=== PATIENT | male | born 1965 | race Caucasian/White ===

== ENCOUNTER 2025-02-16 17:11 | Emergency (ER) | payer OTHER, SELFPAY ==
[2025-02-16 17:20] VITALS: BP 137/83; PULSE 80; TEMP 36.7; O2SAT 93; BMI 40.7
[2025-02-16 18:41] LABS: Hematocrit 32.8 % (42.0-54.0); Hemoglobin 10.2 g/dL (14.0-18.0); Immature Granulocytes Abs Auto 0.04 10^3/uL (0.00-0.03); Immature Granulocytes Pct Auto 0.4 % (0.0-0.5); Lymphocytes Absolute Auto 1.4 10^3/uL (1.2-3.8); Mean Corpuscular HGB Conc 31.1 g/dL (29.9-35.2); Mean Corpuscular Hemoglobin 27.5 pg (25.9-34.0); Mean Corpuscular Volume 88.4 fL (80.0-94.0); Platelet Count 261 10^3/uL (150-450); Red Blood Count 3.71 10^6/uL (4.70-6.10); White Blood Count 10.1 10^3/uL (4.0-11.0)
[2025-02-16 18:57] LABS: Alanine Aminotransferase 16 U/L (16-63); Albumin Globulin Ratio 0.7; Albumin Level 2.8 g/dL (3.4-5.0); Alkaline Phosphatase 96 U/L (46-116); Anion Gap 10.4; Aspartate Amino Transferase 16 U/L (15-37); Blood Urea Nitrogen 14.0 mg/dL (7.0-18.0); Calcium 8.6 mg/dL (8.5-10.1); Carbon Dioxide 29.9 mmol/L (21.0-32.0); Chloride 104 mmol/L (98-107); Estimated GFR (African America >60 (>=60 mL/min/1.73m^2); Estimated GFR (Non-African Ame >60 (>=60 mL/min/1.73m^2); Globulin 3.8 g/dL; Glucose 84 mg/dL (74-106); Potassium 4.3 mmol/L (3.5-5.1); Sodium 140 mmol/L (136-145); Total Protein 6.6 g/dL (6.4-8.2)
--- NOTE | 2025-02-16 18:57 | CT_ITS ---
The [address] [address] Patient Name: CHINEDU HARLEY MRN: [id number] date: 1965 Sex: M Assigned Patient Location: ER Current Patient Location: ER Accession/Order Number: [id number] Exam Date: 02/16/2025 19:30 Report Date: 02/16/2025 20:32 At the request of: JOANNA MCCORMICK MD Procedure: CT hip RT w con CT right hip with contrast TECHNIQUE: The CT exam was performed using one or more the following dose reduction techniques: Automated exposure control, adjustment of the MA and/or Kv according to patient size, or use of the iterative reconstruction technique. COMPARISON: None HISTORY: Right hip replacement one month ago. Bilateral leg swelling one week ago. Right hip pain. Right hip arthroplasty. No hardware complication. Adequate alignment. No acute bony destruction. No acute displaced fracture. Lateral subcutaneous stranding. Likely postsurgical. No large hematoma. Small inguinal lymph nodes. CT/CT hip RT w con IMPRESSION: Uncomplicated right hip arthroplasty. Impression dictated by: Jordan Gomez M.D. 02/16/2025 8:32 PM Dictation Location: [facility] Electronically authenticated by: [id number] Y Date: 02/16/2025 20:32
--- NOTE | 2025-02-16 18:57 | ED.EXTPRO1 ---
HPI - Extremity Problem General Chief complaint: Extremity Problem, Nontraumatic Stated complaint: LOWER PAIN Time Seen by Provider: 02/16/25 18:04 Source: patient Mode of arrival: walk-in History of Present Illness HPI Narrative: The patient is coming to [facility] from [facility] after he was admitted there for detox from opiates presented to us for evaluation of his right hip area the patient developed swelling, the patient already have a history of chronic wound s/p surgery of hip replacement 2 months ago Related Data Home Medications ?Medication ?Instructions ?Recorded ?Confirmed aspirin 81 mg tablet,delayed 81 mg PO QAM 02/16/25 02/16/25 release baclofen 10 mg tablet 20 mg PO Q8H PRN muscle pain 02/16/25 02/16/25 buprenorphine 24 mg/0.48 mL 24 mg subcut QWEEK 02/16/25 02/16/25 solution,exten.rel.subcutaneous syringe (Brixadi Weekly) buprenorphine 8 mg/0.16 mL 8 mg subcut Q7D 02/16/25 02/16/25 solution,exten.rel.subcutaneous syringe (Brixadi Weekly) bupropion HCl 150 mg 24 hr tablet, 150 mg PO QAM 02/16/25 02/16/25 extended release diltiazem HCl 120 mg capsule,24 120 mg PO QAM 02/16/25 02/16/25 hr,extended release docusate sodium 100 mg capsule 200 mg PO BID PRN constipation 02/16/25 02/16/25 dulaglutide 0.75 mg/0.5 mL 0.75 mg subcut QWEEK 02/16/25 02/16/25 subcutaneous [facility] gabapentin 400 mg capsule 400 mg PO TID 02/16/25 02/16/25 lanolin alcohols-mineral 1 applic topical BID 02/16/25 02/16/25 oil-w.petrolatum-ceresin topical cream (Minerin Creme topical) naloxone 4 mg/actuation nasal spray 4 mg intranasal Q3M PRN opioid 02/16/25 02/16/25 overdose Allergies Allergy/AdvReac Type Severity Reaction Status Date / Time No Known Drug Allergies Allergy Verified 02/16/25 17:25 Review of Systems ROS Status of ROS 10 or more systems reviewed and unremarkable except as noted in history and below PFSH PFSH Social History Little interest or pleasure in doing things: not at all Feeling down, depressed, or hopeless: not at all Exam Narrative Exam Narrative: Nurses notes and vital signs reviewed and patient is not hypoxic. General: Well-appearing and in no apparent distress. Skin: Warm, dry, no pallor noted. No rash. Bilateral lower extremity examination: On the lateral aspect of the right hip the patient have a wound that extending from the hip down to the mid thigh that is healing although at the beginning of the wound at the well at the end of it there is some dehiscence of the wound and it is healing well with no signs of infection but there is redness and induration. GI: Abdomen is soft, non-distended. Normal bowel sounds. No masses appreciated. No tenderness to palpation. No rebound, guarding, or rigidity noted. Neurological: A&O x4. No cranial nerve dysfunction observed. No truncal ataxia. Moves all extremities. Sensation intact. Psychiatric: Cooperative and interactive. Normal mood and affect. Constitutional Vital Signs, click to edit/add: Last Vital Signs Temp 98.0 F 02/16/25 17:20 Pulse 80 02/16/25 17:20 Resp 20 02/16/25 17:20 BP 137/83 02/16/25 17:20 Pulse Ox 93 L 02/16/25 17:20 O2 Del Method Room Air 02/16/25 17:20 Course Vital Signs Vital signs: Vital Signs Temperature 98.0 F 02/16/25 17:20 Pulse Rate 80 02/16/25 17:20 Respiratory Rate 20 02/16/25 17:20 Blood Pressure 137/83 02/16/25 17:20 Pulse Oximetry 93 L 02/16/25 17:20 Oxygen Delivery Method Room Air 02/16/25 17:20 Temperature 98.0 F 02/16/25 17:20 Pulse Rate 80 02/16/25 17:20 Respiratory Rate 20 02/16/25 17:20 Blood Pressure 137/83 02/16/25 17:20 Pulse Oximetry 93 L 02/16/25 17:20 Oxygen Delivery Method Room Air 02/16/25 17:20 MDM - Extremity (Nontraumatic) MDM Narrative Medical decision making narrative: CBC chemistry as well as ultrasound of the lower extremities and CAT scan ordered and pending The patient CAT scan will be done after the chemistry is obtained and patient care will be transferred to Dr. Gaines Lab Data Labs: Lab Results 02/16/25 Range/Units 18:30 WBC 10.1 (4.0-11.0) 10^3/uL RBC 3.71 L (4.70-6.10) 10^6/uL Hgb 10.2 L (14.0-18.0) g/dL Hct 32.8 L (42.0-54.0) % MCV 88.4 (80.0-94.0) fL MCH 27.5 (25.9-34.0) pg MCHC 31.1 (29.9-35.2) g/dL RDW 17.3 H (11.0-15.0) % Plt Count 261 (150-450) 10^3/uL MPV 10.6 (9.5-13.5) fL Neut % (Auto) 70.8 (43.0-75.0) % Lymph % (Auto) 14.1 L (20.5-60.0) % [place] % (Auto) 11.0 (1.7-12.0) % Eos % (Auto) 3.0 (0.9-7.0) % Baso % (Auto) 0.7 (0.2-2.0) % Neut # (Auto) 7.2 H (1.4-6.5) 10^3/uL Lymph # (Auto) 1.4 (1.2-3.8) 10^3/uL [place] # (Auto) 1.1 H (0.3-0.8) 10^3/uL Eos # (Auto) 0.3 (0.0-0.7) 10^3/uL Baso # (Auto) 0.1 (0.0-0.1) 10^3/uL Abs Immat Gran (auto) 0.04 H (0.00-0.03) 10^3/uL Imm/Tot Granulo (auto) 0.4 (0.0-0.5) % ESR 34 H (<=20) mm/hr Sodium 140 (136-145) mmol/L Potassium 4.3 (3.5-5.1) mmol/L Chloride 104 (98-107) mmol/L Carbon Dioxide 29.9 (21.0-32.0) mmol/L Anion Gap 10.4 BUN 14.0 (7.0-18.0) mg/dL Creatinine 0.93 (0.70-1.30) mg/dL Est GFR ( Amer) >60 (>=60 mL/min/1.73m^2) Est GFR (Non-Af Amer) >60 (>=60 mL/min/1.73m^2) BUN/Creatinine Ratio 15.1 Glucose 84 (74-106) mg/dL Calcium 8.6 (8.5-10.1) mg/dL Total Bilirubin 0.3 (0.2-1.0) mg/dL AST 16 (15-37) U/L ALT 16 (16-63) U/L Alkaline Phosphatase 96 (46-116) U/L C-Reactive Protein 4.72 H (<=0.50) mg/dL Total Protein 6.6 (6.4-8.2) g/dL Albumin 2.8 L (3.4-5.0) g/dL Globulin 3.8 g/dL Albumin/Globulin Ratio 0.7 Discharge Plan Discharge Patient Disposition: Still a Patient
--- NOTE | 2025-02-16 20:27 | PC.NURSE ---
Patient woke up when [employer]ER[employer]/Datical entered room. he told her that he did not need to have another scan because he just had one yesterday at [facility] that was ordered by his surgeon and that it was negative. He mentions that he also had a CT scan last week that was also negative. He states that he came in today because of the swelling in his lower extremities, and that he has asked his PCP for a prescription for Lasix, but his PCP would not give him any until until he was checked out and other causes for the edema were ruled out. He states he is currently on an oral antibiotic for the drainage from the incision, and he is in contact with his surgeon and his PCP regularly.
== END 2025-02-16 21:11 | disposition home or self-care (01) ==
PROVIDERS: Emergency Medicine; Emergency Provider Internal Medicine
DX: R60.0 Localized edema (principal); Z96.641 Presence of right artificial hip joint
CPT/HCPCS: 36415; 73701; 76376; 80053; 85025; 85652; 86140; 99285; Q9967

== ENCOUNTER 2025-02-28 13:07 | Outpatient (RCR) | payer OTHER, SELFPAY | END 2025-03-16 15:01 | disposition home or self-care (01) | LOC: PT 13:07 | PROVIDERS: Visit Provider Nurse Practitioner Primary Care | DX: M25.551 Pain in right hip (principal); M16.11 Unilateral primary osteoarthritis, right hip | CPT/HCPCS: 97110; 97161 ==